=== PATIENT | female | born 1930 | race Caucasian/White ===

== ENCOUNTER 2018-03-17 18:46 | Emergency (ER) | payer MEDICARE, OTHER ==
[~2018-03-17] VITALS: Ht 165.1 cm; Wt 74.8 kg
[2018-03-17] MEDS ORDERED: predniSONE 20 MG TABLET ONE (19:22)
--- NOTE | 2018-03-17 19:25 | NUR ---
EKG AT BEDSIDE
--- NOTE | 2018-03-17 19:27 | NUR ---
RT CALLED FOR BREATHING TX
--- NOTE | 2018-03-17 19:27 | NUR ---
RADIOLOGY CALLED FOR XRAY
--- NOTE | 2018-03-17 19:27 | NUR ---
LAB AT BEDSIDE FOR BLOOD DRAW
[2018-03-17] MEDS ORDERED: ALBUTEROL FS 2.5 MG/3 ML VIAL.NEB NEB ONE (19:30)
[2018-03-17] MEDS ORDERED: ALBUTEROL FS 2.5 MG/3 ML VIAL.NEB ONE (19:30)
[2018-03-17] MEDS ORDERED: predniSONE 20 MG TABLET PO ONE (19:30)
[2018-03-17 19:33] LABS: BASOPHILS % (AUTO) 0.6 % (0.0-2.0); EOSINOPHILS % (AUTO) 6.5 % (0.0-6.0); HEMATOCRIT 38 % (33-45); HEMOGLOBIN 12.9 g/dL (11.5-14.8); LYMPHOCYTES # (AUTO) 1.8 /CMM (0.8-4.8); LYMPHOCYTES % (AUTO) 25.1 % (20.0-44.0); MEAN CORPUSCULAR HGB CONC 34 g/dl (31.0-36.0); MEAN CORPUSCULAR VOLUME 90 fL (82-100); MONOCYTES # (AUTO) 0.4 /CMM (0.1-1.30); MONOCYTES % (AUTO) 5.6 % (2.0-12.0); NEUTROPHILS # (AUTO) 4.3 /CMM (1.8-8.9); NEUTROPHILS % (AUTO) 62.2 % (43.0-81.0); PLATELET COUNT (AUTO) 240 /CMM (150-450); RDW COEFFICIENT OF VARIATION 13.8 (11.5-15.0); RED BLOOD CELL COUNT(AUTO) 4.22 MIL/uL (4.0-5.2)
[2018-03-17 19:41] LABS: CARBON DIOXIDE 29 mmol/L (21-32); CHLORIDE 105 mmol/L (98-107); GLUCOSE 110 mg/dL (74-106); POTASSIUM 4.2 mmol/L (3.5-5.1); SODIUM SERUM 139 mmol/L (136-145); UREA NITROGEN, BLOOD 11 mg/dL (7-18)
[2018-03-17 19:55] LABS: B-TYPE NATRIURETIC PEPTIDE 230 PG/ML (0-125)
[2018-03-17 20:33] VITALS: BP 159/80
== END 2018-03-17 20:34 | disposition home or self-care (01) ==
LOC: ER 18:57
DX: J44.1 Chronic obstructive pulmonary disease with (acute) exacerbation (principal); J40 Bronchitis, not specified as acute or chronic; I10 Essential (primary) hypertension; F17.200 Nicotine dependence, unspecified, uncomplicated
CPT/HCPCS: 36415; 71045; 80048; 83880; 85025; 87804 ×2; 93005; 94640; 99285; A4606; J7512; 87400; Z7610